=== PATIENT | male | born 1965 | race Caucasian/White ===

== ENCOUNTER 2025-08-17 03:39 | Observation (INO) | payer MEDICAID, SELFPAY ==
[2025-08-17] VITALS (22 sets, daily range): BP systolic 113–163; BP diastolic 74–113; PULSE 66–94; RESP 13–25; TEMP 36.4–37.1; O2SAT 89–98; BMI 25.4; BMI 24.4
--- NOTE | 2025-08-17 04:00 | ED.VIS.CHEST ---
HPI History of Present Illness Chief Complaint: Chest Pain Narrative Narrative: Chief complaint and HPI: 59-year-old male with past medical history of CAD with history of PCI, HTN, anxiety presents for evaluation of chest pain. Patient states that he was at work this evening when he began having left-sided chest tightness. Chest pain was with exertion. States it was similar to his previous [place] in 2014 but not as severe. States he was given full dose aspirin and nitro via EMS and pain resolved. He states he has a chronic cough secondary to COPD. He has a follow-up appointment with his PCP at the end of the month. Current tobacco user. He denies any fever, chills, shortness of breath, abdominal pain, nausea, vomiting. Review of systems: See HPI Medications: As listed on the chart Allergies: As listed on the chart PFSH: Per chart Vital signs: As listed on the chart. Reviewed. Physical exam: Gen: A&O x3, NAD Head: Normocephalic, atraumatic Eyes: No sclera icterus, conjunctiva clear ENT: Moist mucous membranes Neck: Trachea midline CV: RRR, no murmurs, no peripheral edema Resp: Expiratory wheezing bilaterally Musc: Full ROM, no deformity Skin: Warm, dry Neuro: Alert, oriented, grossly intact, sensation intact Psych: Cooperative, appropriate mood and affect [facility] Medical History (Updated 08/17/25 @ 03:44 by Yenny Bledsoe) Fracture, facial bones Home Medications ?Medication ?Instructions ?Recorded ?Last Taken ?Type albuterol sulfate 90 mcg/actuation inhalation 08/17/25 Unknown History aerosol inhaler allopurinol 300 mg tablet 300 mg PO DAILY 08/17/25 Unknown History aspirin 81 mg tablet 81 mg PO DAILY 08/17/25 Unknown History atorvastatin 40 mg tablet 40 mg PO DAILY 08/17/25 Unknown History cholecalciferol (vitamin D3) 50 50 mcg PO DAILY 08/17/25 Unknown History mcg (2,000 unit) capsule lisinopril 10 mg tablet 10 mg PO DAILY 08/17/25 Unknown History metoprolol succinate 25 mg 25 mg PO DAILY 08/17/25 Unknown History tablet,extended release 24 hr omeprazole 20 mg capsule,delayed 20 mg PO DAILY 08/17/25 Unknown History release sertraline 100 mg tablet 100 mg PO QHS 08/17/25 Unknown History Allergy/AdvReac Type Severity Reaction Status Date / Time codeine Allergy Hives Verified 08/17/25 03:42 sulfamethoxazole (From Allergy Hives Verified 08/17/25 03:42 Bactrim) trimethoprim (From Bactrim) Allergy Hives Verified 08/17/25 03:42 Surgical History (Updated 08/17/25 @ 03:44 by Yenny Bledsoe) H/O craniotomy Hx of appendectomy H/O heart artery stent Social History Smoking Status: Current every day smoker tobacco type: cigarettes EXAM Physical Exam Const Vital Signs: 08/17/25 03:40 08/17/25 03:40 08/17/25 04:04 Temperature 98.2 F Temperature Source Oral Pulse Rate 94 72 Respiratory Rate 25 H 13 Respiratory Effort Normal Non-Labored Respiratory Pattern Normal Blood Pressure 156/107 H Blood Pressure Mean 123 Pulse Ox 96 Oxygen Delivery Method Room Air 08/17/25 04:40 08/17/25 05:00 08/17/25 06:00 Temperature Temperature Source Pulse Rate 91 91 82 Respiratory Rate 18 19 H 22 H Respiratory Effort Respiratory Pattern Blood Pressure 140/108 H 151/102 H Blood Pressure Mean 118 118 Pulse Ox 95 95 93 Oxygen Delivery Method Room Air Room Air Room Air MDM MDM MDM Narrative Medical decision making narrative: 59-year-old male with past medical history of CAD with history of PCI, HTN, anxiety presents for evaluation of chest pain. Patient states that he was at work this evening when he began having left-sided chest tightness. Chest pain was with exertion. States it was similar to his previous [place] in 2013 but not as severe. States he was given full dose aspirin and nitro via EMS and pain resolved. He states he has a chronic cough secondary to COPD. Differential diagnosis includes but is not limited to ACS, arrhythmia, COPD, electrolyte abnormality. Patient already received aspirin and nitro. DuoNeb and albuterol ordered for wheezing. Cardiac workup ordered. EKG reviewed see below. CBC without leukocytosis or anemia. Platelets unremarkable. Coagulation panel unremarkable. BMP unremarkable. BNP unremarkable. Chest x-ray was personally reviewed and interpreted by nm, ED physician without pneumonia, effusion, cardiomegaly, pneumothorax. Per radiology mild bilateral peribronchial interstitial thickening, possible bronchitis. This is consistent with a chronic cough. Likely chronic bronchitis from COPD. Troponin unremarkable x 2. On reevaluation patient's chest pain is still resolved however patient has a moderate heart score of a 5 and given risk factors and description, recommend inpatient for stress test. Patient confirmed understanding of the plan. I spoke to his over the phone about results as well as the plan. She confirmed understanding. Dr. López accepted admission for observation for stress test. EKG: Interpreted by me/EM physician: EKG shows normal sinus rhythm without any acute ischemic changes. Heart rate 92. Impression: 1. Chest pain, ACS rule out Lab Data Labs: Laboratory Results - last 24 hr 08/17/25 08/17/25 03:27 05:29 WBC 10.2 RBC 4.54 L Hgb 15.6 Hct 44.2 MCV 97.4 H MCH 34.4 H MCHC 35.3 RDW Std Deviation 41.7 RDW Coeff of Praveen 11.7 Plt Count 157 MPV 10.2 Immature Gran % (Auto) 0.500 Neut % (Auto) 70.3 H Lymph % (Auto) 14.8 L [place] % (Auto) 11.6 H Eos % (Auto) 2.2 Baso % (Auto) 0.6 Absolute Neuts (auto) 7.1 Absolute Lymphs (auto) 1.50 Nucleated RBC % 0 PT 13.4 INR 1.0 APTT 26.5 Sodium 135 Potassium 4.3 Chloride 96 L Carbon Dioxide 25.7 Anion Gap 14 BUN 10 Creatinine 0.63 L Estim Creat Clear Calc 120.95 Est GFR (MDRD) Non-Af 111 BUN/Creatinine Ratio 15.4 Glucose 105 H Calcium 9.6 Troponin T High Sens < 6 Troponin T Hi Sens 2 Hr < 6 NT pro BNP II 148 Radiography Diagnostic Testing: Clinical Impression(s) from Imaging Studies Chest X-Ray 08/17/25 04:18 IMPRESSION: Mild bilateral peribronchial interstitial thickening, possibly bronchitis. [facility] Dis[facility] Triage Chief Complaint: Chest Pain ED Provider: Zach Smyth Dx/Rx/DC Orders Prescriptions: No Action aspirin 81 mg tablet 81 mg PO DAILY sertraline 100 mg tablet 100 mg PO QHS metoprolol succinate 25 mg tablet extended release 24 hr 25 mg PO DAILY lisinopril 10 mg tablet 10 mg PO DAILY atorvastatin 40 mg tablet 40 mg PO DAILY omeprazole 20 mg capsule,delayed release(DR/EC) 20 mg PO DAILY allopurinol 300 mg tablet 300 mg PO DAILY albuterol sulfate 90 mcg/actuation HFA aerosol inhaler inhalation cholecalciferol (vitamin D3) 50 mcg (2,000 unit) capsule 50 mcg PO DAILY Primary Care Provider: ZIA VALVERDE Referrals: [facility] Doctor,Out of [Non-Staff, Medical] Print Language: Bangladeshi
[2025-08-17] MEDS: Albuterol 2.5 MG/3 ML VIAL.NEB. INHALATION (04:03)
[2025-08-17 04:07] LABS: Hematocrit 44.2 % (40-54); Hemoglobin 15.6 g/dL (13.0-16.5); Immature Granulocytes Count 0.050 X10^3/uL (0.0-0.0); Mean Corp Hgb Conc 35.3 g/dL (32-36); Mean Corpuscular Volume 97.4 fL (80-94); Mean Platelet Vol. 10.2 fl (6.2-12.0); NRBC Flagged by Analyzer 0 % (0-5); Platelet Count 157 K/mm3 (150-450); RBC Distribution Width CV 11.7 % (11.6-14.6); RBC Distribution Width SD 41.7 fl (35.1-43.9); Red Blood Count 4.54 M/mm3 (4.6-6.2); White Blood Count 10.2 K/mm3 (4.4-11.0)
--- NOTE | 2025-08-17 04:09 | PCA ---
NO OLD EKG
--- NOTE | 2025-08-17 04:18 | RAD_ITS ---
PROCEDURE: CHEST PA AND LATERAL 08/17/2025 REASON FOR EXAM: CHEST PAIN TECHNIQUE: Procedure Code: RADCXR Modality: DX Procedure: CHEST PA AND LATERAL COMPARISON: None. FINDINGS: Mild bilateral peribronchial interstitial thickening, possibly bronchitis. There is no demonstrated pleural abnormality. Normal heart and pericardium. Normal mediastinum and alberto. Normal visualized pulmonary arteries. Normal visualized aortic arch and descending thoracic aorta. Normal visualized thoracic spine. Normal visualized ribs, clavicles, and shoulders. There is no demonstrated abnormality of the visualized soft tissue structures of the upper abdomen. RAD/Chest PA and Lateral IMPRESSION: Mild bilateral peribronchial interstitial thickening, possibly bronchitis. Reading [facility]
[2025-08-17 04:22] LABS: Prothrombin Time (Protime)PT. 13.4 SECONDS (11.7-14.9)
[2025-08-17 04:23] LABS: Partial Thromboplast Time 26.5 Seconds (24.1-36.2)
[2025-08-17 05:14] LABS: Troponin T High Sensitivity < 6 ng/L (<=22)
[2025-08-17 05:18] LABS: Anion Gap 14 (5-15); BUN 10 mg/dL (4-19); BUN/Creat Ratio 15.4 RATIO (10-20); Calcium,Total 9.6 mg/dL (7.6-11.0); Carbon Dioxide 25.7 mmol/L (21.0-32.0); Chloride 96 mmol/L (98-108); Estimated Creatinine Clearance 120.95 ml/min (50-250); Glucose 105 mg/dL (70-99); Potassium 4.3 mmol/L (3.3-5.1); Pro- Brain NATRIURETIC PEPTIDE 148 pg/mL (<=900)
[2025-08-17 06:04] LABS: Troponin T High Sens 2 HR < 6 ng/L (<=22)
--- NOTE | 2025-08-17 07:09 | PCM.HP.STD ---
HPI - General General Date of Admission: 08/17/25 Date of Service: 08/17/25 HPI Narrative BRITTNEY CALLEJAS, is a 59 M who presented to the emergency department at [facility] on the a.m. of 08/17/2025 with chief complaint of chest pain. He does have a history of coronary artery disease with PCI in 2014 has not followed with his primary medical care administrator much since that point in time. Patient works third shift and he stated he was at work and he began having left-sided chest tightness most notably with exertion. He indicated on presentation was similar to the symptoms that he experienced with his previous [place] however less severe. He was given a full dose aspirin and nitro in the squad prior to arrival which resolved his pain. Patient does indicate he has a chronic cough due to his COPD at baseline and still uses tobacco but this is his baseline. Vital signs on presentation showed temperature 98.2, heart rate 94, respiratory 25, blood pressure was 156/107 with a repeat of 140/108 and pulse ox was 96% on room air. CBC was unremarkable. Chemistry panel was unremarkable. Initial troponin is 6 with a delta of 6. proBNP was 148. Chest x-ray showed bilateral peribronchial thickening consistent with bronchitis. EKG showed no ST-T wave changes consistent with acute ischemia. Patient will be placed in the hospital as observation status for stress test. [facility] Medical History (Updated 08/17/25 @ 17:[address] Shanae López, ) Essential hypertension COPD (chronic obstructive pulmonary disease) Nicotine dependence Dyslipidemia Coronary artery disease Fracture, facial bones Home Medications ?Medication ?Instructions ?Recorded ?Last Taken ?Type albuterol sulfate 90 mcg/actuation 2 inh inhalation BID breathing 08/17/25 Unknown History aerosol inhaler allopurinol 300 mg tablet 300 mg PO DAILY 08/17/25 Unknown History aspirin 81 mg tablet 81 mg PO DAILY 08/17/25 Unknown History atorvastatin 40 mg tablet 40 mg PO DAILY 08/17/25 Unknown History cholecalciferol (vitamin D3) 50 50 mcg PO DAILY 08/17/25 Unknown History mcg (2,000 unit) capsule lisinopril 10 mg tablet 10 mg PO DAILY 08/17/25 Unknown History metoprolol succinate 25 mg 25 mg PO DAILY 08/17/25 Unknown History tablet,extended release 24 hr omeprazole 20 mg capsule,delayed 20 mg PO DAILY 08/17/25 Unknown History release sertraline 100 mg tablet 100 mg PO QHS 08/17/25 Unknown History Allergy/AdvReac Type Severity Reaction Status Date / Time codeine Allergy Hives Verified 08/17/25 03:42 sulfamethoxazole (From Allergy Hives Verified 08/17/25 03:42 Bactrim) trimethoprim (From Bactrim) Allergy Hives Verified 08/17/25 03:42 Family History (Updated 08/17/25 @ 17:[address] Shanae López DO) Other COPD (chronic obstructive pulmonary disease) Heart disease Hypertension Surgical History H/O craniotomy Hx of appendectomy H/O heart artery stent Social History (Updated 08/17/25 @ 17:[address] Shanae López DO) household members: spouse housing: apartment current occupational status: employed Smoking Status: Current every day smoker tobacco type: cigarettes alcohol intake: current alcohol intake frequency: a few times a month substance use type: does not use ROS Constitutional Constitutional: Denies anorexia, change in weight, chills, fatigue, fever(s), malaise, night sweats, weakness or other Eyes Eyes: Denies blurry vision, change in eye color, change in vision, discharge from eye(s), double vision, erythema, eye pain, loss of vision or other ENT HEENT: Denies abnormal hearing, dysphagia, ear pain, epistaxis, headache(s), hearing loss, nasal congestion, nasal discharge, post nasal drip, sinus pressure, sore throat or other Cardiovascular Cardiovascular: Reports chest pain and dyspnea on exertion; Denies claudication, edema, lightheadedness, orthopnea, palpitations, paroxysmal nocturnal dyspnea, rapid heart rate, syncope or other Respiratory/Chest Respiratory/Chest: Reports cough, dyspnea, shortness of breath with exertion and wheezing; Denies excessive phlegm production, hemoptysis, productive cough, shortness of breath at rest or other Gastrointestinal Gastrointestinal: Denies abdominal pain, coffee ground emesis, constipation, diarrhea, dyspepsia, hematemesis, hematochezia, loose stools, melena, nausea, vomiting or other Genitourinary Genitourinary: Denies burning urination, difficulty urinating, dysuria, hematuria, nocturia, urinary frequency, urinary hesitancy, urinary incontinence, urinary urgency or other Musculoskeletal Musculoskeletal: Denies arthralgias, back pain, joint pain, joint stiffness, joint swelling, myalgias, neck pain or other Neurologic Neurologic: Denies abnormal gait, abnormal speech, confusion, disequilibrium, dizziness, focal weakness, headache(s), numbness, paresthesias, seizure-like activity, seizures, syncope, tingling, tremor(s) or other Psychiatric Psychiatric: Reports depression; Denies anxiety, homicidal ideation, suicidal ideation or other Endocrine Endocrinology: Denies change in body appearance, cold intolerance, excessive sweating, heat intolerance, polydipsia, polyuria or other Hematologic/Lymphatic Hematologic/Lymphatic: Denies anemia, easy bleeding, easy bruising, lymphadenopathy or other Allergic/Immunologic Allergic/Immunologic: Denies rhinitis, hives, eczemia, asthma or other Vital Signs Vital Signs Vital Signs: 08/17/25 03:40 08/17/25 03:40 08/17/25 04:04 Temperature 98.2 F Temperature Source Oral Pulse Rate 94 72 Respiratory Rate 25 H 13 Respiratory Effort Normal Non-Labored Respiratory Pattern Normal Blood Pressure 156/107 H Blood Pressure Mean 123 Pulse Ox 96 Oxygen Delivery Method Room Air 08/17/25 04:40 08/17/25 05:00 08/17/25 06:00 Temperature Temperature Source Pulse Rate 91 91 82 Respiratory Rate 18 19 H 22 H Respiratory Effort Respiratory Pattern Blood Pressure 140/108 H 151/102 H Blood Pressure Mean 118 118 Pulse Ox 95 95 93 Oxygen Delivery Method Room Air Room Air Room Air 08/17/25 06:17 08/17/25 07:00 Temperature 98.1 F Temperature Source Pulse Rate 89 86 Respiratory Rate 20 H 20 H Respiratory Effort Respiratory Pattern Blood Pressure 163/99 H 152/100 H Blood Pressure Mean 120 117 Pulse Ox 93 93 Oxygen Delivery Method Room Air Weight Weight: 73.8 kg Body Mass Index (BMI) 25.4 Physical Exam Const alert, oriented x3, no apparent distress, average body habitus and well nourished; Negative for healthy appearing Constitutional Narrative: Middle-age, white male, sitting up in bed, appears older than stated age, appears comfortable, nontoxic, cardiology at bedside General Appearance: cooperative HEENT normocephalic, head/scalp atraumatic, hearing grossly normal bilaterally and moist oral mucous membranes HEENT Narrative: Dentition is poor, Mallampati is 2, no thrush Eyes conjunctivae normal Eyes Narrative: No scleral icterus Neck no lymphadenopathy and supple Neck Narrative: Trachea midline Resp normal respiratory effort, no retractions, no use of accessory muscles and No clear to auscultation bilaterally Resp Narrative: Diffusely diminished with scattered inspiratory and expiratory wheezes Auscultation: wheezes; Negative for crackles or rhonchi Cardio regular rate, regular rhythm, S1 normal heart sound, S2 normal heart sound, no murmurs, no rub, no gallops and no clicks GI normal to inspection, nondistended, normoactive bowel sounds, soft to palpation and non-tender Extremity no clubbing, cyanosis or edema Extremity Narrative: 2+ radial pulses 1+ pedal pulses Neuro moves all extremities and no focal motor deficits Speech: speech normal Psych affect normal Psych Narrative: Very pleasant, interacts appropriately Results Lab / Micro Data 08/17/25 03:27 08/17/25 03:27 Labs: Laboratory Results - last 24 hr 08/17/25 03:27: WBC 10.2, RBC 4.54 L, Hgb 15.6, Hct 44.2, MCV 97.4 H, MCH 34.4 H, MCHC 35.3, RDW Std Deviation 41.7, RDW Coeff of Praveen 11.7, Plt Count 157, MPV 10.2, Immature Gran % (Auto) 0.500, Neut % (Auto) 70.3 H, Lymph % (Auto) 14.8 L, [place] % (Auto) 11.6 H, Eos % (Auto) 2.2, Baso % (Auto) 0.6, Absolute Neuts (auto) 7.1, Absolute Lymphs (auto) 1.50, Nucleated RBC % 0, PT 13.4, INR 1.0, APTT 26.5, Sodium 135, Potassium 4.3, Chloride 96 L, Carbon Dioxide 25.7, Anion Gap 14, BUN 10, Creatinine 0.63 L, Estim Creat Clear Calc 120.95, Est GFR (MDRD) Non-Af 111, BUN/Creatinine Ratio 15.4, Glucose 105 H, Calcium 9.6, Troponin T High Sens < 6, NT pro BNP II 148 08/17/25 05:29: Troponin T Hi Sens 2 Hr < 6 Imaging Radiology Impression Chest X-Ray 08/17/25 04:18 IMPRESSION: Mild bilateral peribronchial interstitial thickening, possibly bronchitis. Reading [facility] Assessment & Plan Assessment/Plan (1) Unstable angina: PLAN: Plan Unstable angina with history of coronary disease - Symptoms are similar to his previous - Troponin negative x 2 - EKG is unremarkable - Check stress test if negative will discharge if positive will consult cardiology - Check lipid panel - Continue home aspirin, atorvastatin, lisinopril, metoprolol CAD/essential hypertension/hyperlipidemia - Patient with previous stent in 2013 but has not followed up with cardiology since that point in time - Continue home aspirin - Continue home atorvastatin - Continue on lisinopril next-continue metoprolol GERD - Continue home PPI Vitamin D deficiency - Continue on cholecalciferol History of gout - Continue home allopurinol COPD - Continue home as needed albuterol Depression Continue home sertraline Tobacco abuse - Patient denies need for nicotine replacement therapy at this time - Patient is aware that he can have something if he needs - Recommend smoking cessation DVT prophylaxis - Continue enoxaparin CODE STATUS - Full code as verified Charges/Coding Visit Charges Inpatient E&M: 78479 Init Hosp L2
--- NOTE | 2025-08-17 11:08 | STRESSREP ---
Stress Test Report Date: 08/17/2025 Procedure: Pharmacologic stress nuclear imaging study Indications: Chest pain Consent: Per the patient Procedure: The patient underwent pharmacologic (Regadenoson 0.4mg ) evaluation with a peak heart rate of 100 beats per minute (61%predicted maximal heart rate) and a peak blood pressure of 164/98 mmHg. The baseline ECG demonstrated sinus rhythm. The peak pharmacologic ECG did not show any ischemic changes. There were no cardiac dysrhythmias pretest, during pharmacologic infusion, or recovery. There was no complaint of chest discomfort during pharmacologic infusion or recovery. The patient was injected with 12.0 millicuries of technetium 99m Cardiolite and subsequently rest SPECT Cardiolite nuclear imaging was obtained in the horizontal long, vertical long, and short axis views. The patient underwent pharmacologic (Regadenoson) evaluation. The patient was injected with 34.0 millicuries of technetium 99m Cardiolite and subsequently stress SPECT Cardiolite nuclear imaging was obtained in the horizontal long, vertical long, and short axis views. A gated Cardiolite study at peak stress was obtained. The examination was stopped secondary to completion of protocol. Rest and stress SPECT Cardiolite nuclear imaging status post realignment, normalization, and attenuation correction demonstrate mildly reduced perfusion of the mid and basal septum post pharmacological stress. There is end systolic thickening and brightening. The gated Cardiolite study demonstrates myocardial thickening and inward wall motion. The reported LVEF is 66%. Impression: 1. Pharmacologic (Regadenoson) evaluation 2. Peak pharmacologic ECG with no ischemic changes. 3. There were no cardiac dysrhythmias pretest, during pharmacologic infusion, or recovery. 5. Mild reversible ischemia of the septal wall. 6. The gated Cardiolite study reports an LVEF of 66%. This note was generated with [employer] software. It may contain incorrect words, spelling, and punctuation that were not noted in checking the note before signing.
--- NOTE | 2025-08-17 11:58 | PCM.CONS.C ---
Assessment & Plan Assessment/Plan (1) Unstable angina: PLAN: New onset angina pectoris. Abnormal Lexiscan stress Myoview. Options discussed with patient. Medical management versus coronary angiography with possible percutaneous revascularization discussed. Risks benefits explained. He understands these and wishes to proceed with coronary angiography. (2) Coronary artery disease: PLAN: See #1 above. Previous history of PR. Previous history of PCI in 2013. (3) Nicotine dependence: PLAN: Quit smoking. (4) Dyslipidemia: PLAN: Atorvastatin. (5) COPD (chronic obstructive pulmonary disease): PLAN: As per internal medicine. HPI Consult Data Date of Consult: 08/17/25 HPI Narrative Reason for Consultation: Chest pain HPI Narrative: 59-year-old gentleman with previous history of heart attack with PCI in [place] in 2013, COPD, dyslipidemia and nicotine dependence. He presented to the emergency room after developing chest pain while at work yesterday. According to him, he felt pressure across his anterior chest. No radiation to the arm neck or jaw. Positive associated shortness of breath. Positive diaphoresis. According to the patient, his discomfort felt the same when he had his PR but less intense. Symptoms were relieved when EMS gave him nitroglycerin sublingual. He has been asymptomatic since. He has had a Lexiscan stress Myoview done this morning. It was abnormal with septal ischemia. Per patient, he was asymptomatic prior to this episode of chest discomfort yesterday. He does have chronic shortness of breath with exertion on account of his COPD. That remains unchanged. Denies orthopnea or PND. [facility] Medical History (Updated 08/17/25 @ 12:[address] Brooks Morales MD) Fracture, facial bones Home Medications ?Medication ?Instructions ?Recorded ?Last Taken ?Type albuterol sulfate 90 mcg/actuation 2 inh inhalation BID breathing 08/17/25 Unknown History aerosol inhaler allopurinol 300 mg tablet 300 mg PO DAILY 08/17/25 Unknown History aspirin 81 mg tablet 81 mg PO DAILY 08/17/25 Unknown History atorvastatin 40 mg tablet 40 mg PO DAILY 08/17/25 Unknown History cholecalciferol (vitamin D3) 50 50 mcg PO DAILY 08/17/25 Unknown History mcg (2,000 unit) capsule lisinopril 10 mg tablet 10 mg PO DAILY 08/17/25 Unknown History metoprolol succinate 25 mg 25 mg PO DAILY 08/17/25 Unknown History tablet,extended release 24 hr omeprazole 20 mg capsule,delayed 20 mg PO DAILY 08/17/25 Unknown History release sertraline 100 mg tablet 100 mg PO QHS 08/17/25 Unknown History Allergy/AdvReac Type Severity Reaction Status Date / Time codeine Allergy Hives Verified 08/17/25 03:42 sulfamethoxazole (From Allergy Hives Verified 08/17/25 03:42 Bactrim) trimethoprim (From Bactrim) Allergy Hives Verified 08/17/25 03:42 Surgical History (Updated 08/17/25 @ 03:44 by Yenny Bledsoe) H/O craniotomy Hx of appendectomy H/O heart artery stent Social History Smoking Status: Current every day smoker tobacco type: cigarettes Physical Exam Narrative Comfortable. No apparent distress. Heart sounds 1 and 2 noted. Mild bilateral expiratory wheezing noted on examination of the chest. Alert oriented x 3. No ankle edema. Objective Data Vital Signs: Vital Signs Temp Pulse Resp BP Pulse Ox O2 Del Method 98.7 F 70 18 151/97 H 98 Room Air 08/17/25 08:15 08/17/25 08:15 08/17/25 08:15 08/17/25 08:15 08/17/25 08:42 08/17/25 08:42 Oxygen Delivery Method Room Air Weight: 156 lb 1.396 oz Body Mass Index (BMI) 24.4 Intake & Output: Intake and Output for Last 24 Hours 08/15/25 08/16/25 08/17/25 23:59 23:59 23:59 Intake Total 0 / 0 Balance 0 / 0 Lab / Micro Data 08/17/25 03:27 08/17/25 03:27 Labs: Laboratory Results - last 24 hr 08/17/25 03:27: WBC 10.2, RBC 4.54 L, Hgb 15.6, Hct 44.2, MCV 97.4 H, MCH 34.4 H, MCHC 35.3, RDW Std Deviation 41.7, RDW Coeff of Praveen 11.7, Plt Count 157, MPV 10.2, Immature Gran % (Auto) 0.500, Neut % (Auto) 70.3 H, Lymph % (Auto) 14.8 L, Cottle % (Auto) 11.6 H, Eos % (Auto) 2.2, Baso % (Auto) 0.6, Absolute Neuts (auto) 7.1, Absolute Lymphs (auto) 1.50, Nucleated RBC % 0, PT 13.4, INR 1.0, APTT 26.5, Sodium 135, Potassium 4.3, Chloride 96 L, Carbon Dioxide 25.7, Anion Gap 14, BUN 10, Creatinine 0.63 L, Estim Creat Clear Calc 120.95, Est GFR (MDRD) Non-Af 111, BUN/Creatinine Ratio 15.4, Glucose 105 H, Calcium 9.6, Troponin T High Sens < 6, NT pro BNP II 148 08/17/25 05:29: Troponin T Hi Sens 2 Hr < 6 Cardiology Labs/Tests 08/17/25 03:27: WBC 10.2, RBC 4.54 L, Hgb 15.6, Hct 44.2, MCV 97.4 H, MCH 34.4 H, MCHC 35.3, Plt Count 157, MPV 10.2, Immature Gran % (Auto) 0.500, Neut % (Auto) 70.3 H, Lymph % (Auto) 14.8 L, Cottle % (Auto) 11.6 H, Eos % (Auto) 2.2, Baso % (Auto) 0.6, Absolute Neuts (auto) 7.1, Nucleated RBC % 0, PT 13.4, INR 1.0, APTT 26.5, Sodium 135, Potassium 4.3, Chloride 96 L, Carbon Dioxide 25.7, Anion Gap 14, BUN 10, Creatinine 0.63 L, Est GFR (MDRD) Non-Af 111, BUN/Creatinine Ratio 15.4, Glucose 105 H, Calcium 9.6 Rhythm: EKG: ECHO: Stress Test: Cardiac Cath: PCI: CT Surgery: Holter monitor: EPS: PPM: CXR: Chest CT Scan: Radiography Diagnostic Testing: Radiology Impression Chest X-Ray 08/17/25 04:18 IMPRESSION: Mild bilateral peribronchial interstitial thickening, possibly bronchitis. Reading Location: [place] [id number] [place] Risk Score for UA/STEMI Assesmment (YES = 1) Risk Stratification Applicable: No
--- NOTE | 2025-08-17 13:16 | CL.D_ITS ---
Patient Name: BRITTNEY CALLEJAS Study Date: 08/17/2025 Performing: Brooks Morales MD Ht: 67 inches 170.18 cm : 1965 Wt: 156.09 lbs 70.8 kg Age: 59 Gender: male BSA: 1.82 PROCEDURE(S) PERFORMED DC01-([id number])LHC/COR/LV CLINICAL PROFILE AND INDICATIONS Indications: New Onset Angina <= 2 months Heart Failure: None Stress/Imaging Stress Test w/SPECT MPI: Yes Result: Positive Low RiskStress Test with SPECT MPI: Positive Low Risk Angina Classification Anginal Classification w/in 2 Weeks: CCS II CAD Presentations: Unstable angina. CONCLUSIONS Stent to Mid LCX patent 40-50% Prox LAD LVEF 65% RECOMMENDATIONS Medical therapy Risk factor modification DESCRIPTION OF PROCEDURE The patient arrived to the procedure lab. The risks and benefits of the procedure as well as a full description of our services here and current unavailability of surgical backup were fully explained to the patient and/or their significant other prior to the catheterization. The Timeout was completed, verifying the correct patient and procedure. The patient's procedural site was prepped and draped in the usual fashion. Local anesthetic was given subcutaneously to right radial region with Lidocaine 2%. Using a modified Seldinger technique, arterial access was obtained via the right radial artery, a 6Fr sheath was inserted. Left Coronary Artery selective angiography was performed in multiple views using a 5 Fr. 4.0 Clio catheter. Right Coronary Artery selective angiography was then performed in multiple views using a 5 Fr. 4.0 Clio catheter. Left Ventriculography was performed in CURIEL projection using a 5 Fr. Pigtail catheter. LV to AO pullback pressures were then recorded.The arterial sheath was pulled and a TR Band was applied for hemostasis 14cc air CORONARY ANGIOGRAPHY DOMINANCE: Left Dominant LEFT HEART ASSESSMENT Left Ventricular Ejection Fraction: by LV Gram 65 % LVEDP: 25 mmHg LEFT MAIN: Angiographically normal LEFT ANTERIOR DESCENDING ARTERY: LAD: Tubular Calcified 40% Proximal lesion in LAD RIGHT CORONARY ARTERY: Angiographically normal COMPLICATIONS No Complications PROCEDURE MEDICATIONS Fentanyl 50 mcg IV Versed 1 mg IV Oxygen: 2 L/min via nasal cannula Heparin given IA 08/17/2025 12:37:58 Verapamil 2.5mg, Ntg 200mcgs, 2000 units of Heparin given IA 08/17/2025 12:37:58 SUMMARY OF HEMODYNAMIC DATA Time AIR REST ECG 12:23:46 AO 138/96 (115) SA 12:42:59 LV 150/13, 26 12:58:13 LV 158/14, 25 12:58:21 LV 146/20, 28 13:03:07 LVp 156/21, 29 13:03:14 AOp 164/23 (76) 13:03:21 13:15:14 Signed By Brooks Morales MD On 08/17/2025 13:16:02 Brooks Morales MD
[2025-08-17 13:31] LABS: D-Dimer Quantitative (DVT/PE) 0.46 FEU/ug/m (0.27-0.49)
[2025-08-17] MEDS: 0.9% Normal Saline (1000mL) 1,000 ML 150 ML IV (13:31)
[2025-08-17] MEDS: Cholecalciferol (VIT D3) 25 MCG TABLET (1,000 UNITS) 50 MCG PO (13:35)
[2025-08-17] MEDS: Metoprolol(XL)Succ 25 MG Tablet PO (13:36)
--- NOTE | 2025-08-17 21:45 | NURSING ---
This RN took over care of this pt at this time.
[2025-08-17] MEDS: 0.9% Saline Lock 10 ML Syringe IV (22:56)
[2025-08-18 05:15] VITALS: BP 145/97; PULSE 69; RESP 18; TEMP 37; O2SAT 93
[2025-08-18 06:13] LABS: Hematocrit 42.9 % (40-54); Hemoglobin 15.2 g/dL (13.0-16.5); Immature Granulocytes Count 0.040 X10^3/uL (0.0-0.0); Mean Corp Hgb Conc 35.4 g/dL (32-36); Mean Corpuscular Volume 98.4 fL (80-94); Mean Platelet Vol. 9.5 fl (6.2-12.0); NRBC Flagged by Analyzer 0 % (0-5); Platelet Count 158 K/mm3 (150-450); RBC Distribution Width CV 11.8 % (11.6-14.6); RBC Distribution Width SD 42.7 fl (35.1-43.9); Red Blood Count 4.36 M/mm3 (4.6-6.2); White Blood Count 8.7 K/mm3 (4.4-11.0)
[2025-08-18 06:31] LABS: D-Dimer Quantitative (DVT/PE) 0.53 FEU/ug/m (0.27-0.49)
[2025-08-18 06:35] LABS: AST(SGOT) 34 U/L (<=37); Alanine Aminotransfer ALT/SGPT 39 U/L (<=46); Albumin, Serum 4.1 g/dL (3.5-5.0); Alkaline Phosphatase 84 U/L (40-129); Anion Gap 10 (5-15); BUN 8 mg/dL (4-19); BUN/Creat Ratio 10.9 RATIO (10-20); Calcium,Total 9.6 mg/dL (7.6-11.0); Carbon Dioxide 27.1 mmol/L (21.0-32.0); Chloride 98 mmol/L (98-108); Cholesterol 200 mg/dL (<=200); Estimated Creatinine Clearance 107.32 ml/min (50-250); Globulin 3.1 g/dL (2.2-4.2); Glucose 103 mg/dL (70-99); Low Density Lipoprotein Calc. 98 mg/dL; Magnesium 1.8 mg/dL (1.5-2.2); Potassium 4.3 mmol/L (3.3-5.1); Triglycerides 61 mg/dL; Very Low Density Lipoprotein 12 mg/dL (5-40); cholesterol:hdl ratio screen 2.23
[2025-08-18 08:16] VITALS: BP 139/97; PULSE 70; RESP 16; TEMP 36.6; O2SAT 93
[2025-08-18 08:49] VITALS: PULSE 70
[2025-08-18] MEDS: Metoprolol(XL)Succ 25 MG Tablet PO (08:49)
[2025-08-18] MEDS: Cholecalciferol (VIT D3) 25 MCG TABLET (1,000 UNITS) 50 MCG PO (08:49)
--- NOTE | 2025-08-18 10:59 | NURSING ---
This nurse went to room to answer call light and pt who been pleasant and easygoing was frustrated and agitated. He was getting dressed and wanted to be D/c right away. explained d/c process. gave Dr López update that pt wants to leave AMA. She noted she is trying to get appts made for d/c. Gave this update to pt who then expressed frustration that he needs to walk to [place] from [facility] after d/c to get to his car. This nurse had community educator call to arrange ride w/ hospital van who had opening at noon.
[2025-08-18 11:15] VITALS: BP 134/101; PULSE 88; TEMP 36.7; O2SAT 95
--- NOTE | 2025-08-18 11:18 | PCM.DC.SUM ---
Providers Date of Admission: 08/17/25 Date of Discharge: 08/18/25 Primary Care Physician: ZIA VALVERDE Reason For Visit: ANGINA Diagnosis Discharge Diagnosis (1) Unstable angina: Status: Acute Code(s): I20.0 - Unstable angina Medications at Discharge Home Medications albuterol sulfate 90 mcg/actuation aerosol inhaler 2 inh inhalation BID breathing 08/17/25 allopurinol 300 mg tablet 300 mg PO DAILY 08/17/25 aspirin 81 mg tablet 81 mg PO DAILY 08/17/25 cholecalciferol (vitamin D3) 50 mcg (2,000 unit) capsule 50 mcg PO DAILY 08/17/25 lisinopril 10 mg tablet 10 mg PO DAILY 08/17/25 metoprolol succinate 25 mg tablet,extended release 24 hr 25 mg PO DAILY 08/17/25 omeprazole 20 mg capsule,delayed release 20 mg PO DAILY 08/17/25 sertraline 100 mg tablet 100 mg PO QHS 08/17/25 amlodipine 5 mg tablet 5 mg PO DAILY #30 tabs 08/18/25 atorvastatin 80 mg tablet (Lipitor) 80 mg PO DAILY #30 tabs 08/18/25 Hospital Course Operations None Procedures Cardiac catheterization, EKG and Nuclear stress test Summary of Care Provided Minutes Spent on Discharge: 37 Hospital Course: BRITTNEY CALLEJAS, is a 59 M who presented to the emergency department at [facility] on the a.m. of 08/17/2025 with chief complaint of chest pain. 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 Patient works third shift and he stated he was at work and he began having left-sided chest tightness most notably with exertion. He indicated on presentation was similar to the symptoms that he experienced with his previous MN however less severe. He was given a full dose aspirin and nitro in the squad prior to arrival which resolved his pain. Patient does indicate he has a chronic cough due to his COPD at baseline and still uses tobacco but this is his baseline. Vital signs on presentation showed temperature 98.2, heart rate 94, respiratory 25, blood pressure was 156/107 with a repeat of 140/108 and pulse ox was 96% on room air. CBC was unremarkable. Chemistry panel was unremarkable. Initial troponin is 6 with a delta of 6. proBNP was 148. Chest x-ray showed bilateral peribronchial thickening consistent with bronchitis. EKG showed no ST-T wave changes consistent with acute ischemia. Given his concerning symptoms he was admitted to the hospital under observation status and a stress test was ordered. Stress test was performed on 08/17/2025 and was abnormal. It showed no cardiac dysrhythmias, mild reversible ischemia at the septal wall, estimated EF of 66% with peak pharmacological EKG showing no EKG changes. Given his septal wall reversible ischemia concerns cardiology was consulted and he was taken to [facility] on 07/19/2025 at which time he was found to have no obstructive lesions, patent stent to the mid left circumflex and 40 to 50% proximal LAD stenosis with an EF of 65%. Medical therapy was recommended to be continue and risk factor modification was pursued. Patient was already on a statin but his LDL was greater than 70 so we did increase his dose from 40 to 80 mg daily and a prescription for this was sent. He was also started on some low-dose amlodipine by cardiology at 5 mg daily. He is currently not following with cardiology so we did make an appointment for him to be seen here in town with cardiology and have asked him to follow-up with his primary care physician in the next 2 weeks. We also did discuss tobacco cessation and patient voiced understanding and stated he would try. Patient was able to be discharged home in stable condition on 08/18/2025. Discharge diagnoses: Chest pain-resolved Nonobstructive CAD Essential hypertension Hyperlipidemia GERD Vitamin D deficiency History of gout COPD Depression Tobacco abuse Physical Exam Const alert, oriented x3, no apparent distress, average body habitus, no limitations and well nourished; Negative for healthy appearing Constitutional Narrative: Middle-age, white male, sitting up in bed, appears older than stated age, appears comfortable, nontoxic General Appearance: cooperative, comfortable, well kempt and well developed Exam Limitations: no limitations HEENT normocephalic, head/scalp atraumatic, hearing grossly normal bilaterally and moist oral mucous membranes HEENT Narrative: Dentition is poor, Mallampati is 2, no thrush Eyes conjunctivae normal Eyes Narrative: No scleral icterus Neck no lymphadenopathy and supple Neck Narrative: Trachea midline Resp normal respiratory effort, no retractions, no use of accessory muscles and No clear to auscultation bilaterally Resp Narrative: Diffusely diminished with coarse breath sounds and scattered inspiratory and expiratory wheezes Auscultation: wheezes; Negative for crackles or rhonchi Cardio regular rate, regular rhythm, S1 normal heart sound, S2 normal heart sound, no murmurs, no rub, no gallops and no clicks GI normal to inspection, nondistended, normoactive bowel sounds, soft to palpation and non-tender Extremity no clubbing, cyanosis or edema Extremity Narrative: 2+ radial pulses 1+ pedal pulses Skin no jaundice, no petechiae and no mottling Skin Narrative: Area over right radial artery with a small amount of ecchymosis and minimal tenderness, no signs of significant edema Neuro moves all extremities and no focal motor deficits Speech: speech normal Psych affect normal Psych Narrative: Very pleasant, interacts appropriately Weight / BMI Weight Weight: 70.8 kg Body Mass Index (BMI) 24.4 ABG / Lab / Microbiology Data 08/18/25 05:44 08/18/25 05:44 Laboratory: Laboratory Results - last 24 hr 08/17/25 13:08: D-Dimer Quant (PE/DVT) 0.46 08/18/25 05:44: WBC 8.7, RBC 4.36 L, Hgb 15.2, Hct 42.9, MCV 98.4 H, MCH 34.9 H, MCHC 35.4, RDW Std Deviation 42.7, RDW Coeff of Praveen 11.8, Plt Count 158, MPV 9.5, Immature Gran % (Auto) 0.500, Neut % (Auto) 73.7 H, Lymph % (Auto) 11.5 L, [place] % (Auto) 10.3 H, Eos % (Auto) 3.3, Baso % (Auto) 0.7, Absolute Neuts (auto) 6.4, Absolute Lymphs (auto) 1.00, Nucleated RBC % 0, D-Dimer Quant (PE/DVT) 0.53 H*, Sodium 135, Potassium 4.3, Chloride 98, Carbon Dioxide 27.1, Anion Gap 10, BUN 8, Creatinine 0.71, Estim Creat Clear Calc 107.32, Est GFR (MDRD) Non-Af 107, BUN/Creatinine Ratio 10.9, Glucose 103 H, Calcium 9.6, Phosphorus 2.9, Magnesium 1.8, Total Bilirubin 1.64 H, AST 34, ALT 39, Alkaline Phosphatase 84, Total Protein 7.2, Albumin 4.1, Globulin 3.1, Albumin/Globulin Ratio 1.3, Triglycerides 61, Cholesterol 200, LDL Cholesterol, Calc 98, VLDL Cholesterol 12, HDL Cholesterol 90, Cholesterol/HDL Ratio 2.23 D/C Instructions Discharge Activity: Return to Normal Activity Return to work on: 08/20/25 DC O2, CPAP, BIPAP Needs Home O2 Discharge instructions: No DC home with Oxygen: No Meaningful Use Info Meaningful Use Meaningful Use Diagnoses (Choose all that apply): None applicable Discharge Plan Admission Admit Date/Time: 08/17/25 07:00 Primary Reason for Your Visit: Chest pain Attending Provider: Shanae López Primary Care Provider: ZIA VALVERDE Instructions Forms: Work Excuse, Work / School Excuse Additional Instructions / Restrictions: 1. Highly recommend discontinuation of tobacco use 2 your cholesterol was too high so we did increase your cholesterol medication from 40 to 80 mg. I recommend you follow-up with your primary care doctor and they can check your cholesterol in 3 months Discharge Orders/Prescriptions Prescriptions: New amlodipine 5 mg Tablet 5 mg PO DAILY Qty: 30 1RF atorvastatin [Lipitor] 80 mg tablet 80 mg PO DAILY Qty: 30 1RF Continued aspirin 81 mg tablet 81 mg PO DAILY sertraline 100 mg tablet 100 mg PO QHS metoprolol succinate 25 mg tablet extended release 24 hr 25 mg PO DAILY lisinopril 10 mg tablet 10 mg PO DAILY omeprazole 20 mg capsule,delayed release(DR/EC) 20 mg PO DAILY allopurinol 300 mg tablet 300 mg PO DAILY albuterol sulfate 90 mcg/actuation HFA aerosol inhaler 2 inh inhalation BID cholecalciferol (vitamin D3) 50 mcg (2,000 unit) capsule 50 mcg PO DAILY Discontinued atorvastatin 40 mg tablet 40 mg PO DAILY Referrals / Follow Up: ZIA VALVERDE [Other] - Within 2 Weeks Nilson Marcum MD [Med Staff - Active Staff, Cardiology] - 08/28/25 1:30 pm Referral Note: APPOINTMENT WITH TAMMIE Novak Doctor,Out of [Non-Staff, Medical] Disposition Disposition (needs filled in before D/C Order can be placed): Home, Self Care Charges/Coding Visit Charges Inpatient E&M: 96217 Disch Hosp >30min
--- NOTE | 2025-08-18 11:28 | CASEMGMT ---
Patient has order for discharge. RN CM in to discuss needs at discharge. Patient denies needs or help at discharge. Patient had no further questions or concerns.
[2025-08-18] MEDS: FLU VACCINE 2025-26(6MOS UP) 45 MCG/0.5 ML SYRINGE IM (11:29)
--- NOTE | 2025-08-18 11:48 | PHA.DC_ITS ---
Pharmacy [facility] has performed discharge medication counseling for this patient. The patient was counseled on the following discharge medications and changes in medications for homegoing review. The Reason for Use, instructions for use, and potential side effects were reviewed for all new medications. The patient's questions regarding all of their medications were answered. The patient was able to verbally demonstrate an understanding of their discharge medications. Medications at Discharge Home Medications albuterol sulfate 90 mcg/actuation aerosol inhaler 2 inh inhalation BID breathing 08/17/25 allopurinol 300 mg tablet 300 mg PO DAILY gout 08/17/25 aspirin 81 mg tablet 81 mg PO DAILY heart health 08/17/25 cholecalciferol (vitamin D3) 50 mcg (2,000 unit) capsule 50 mcg PO DAILY vitamin 08/17/25 lisinopril 10 mg tablet 10 mg PO DAILY blood pressure 08/17/25 metoprolol succinate 25 mg tablet,extended release 24 hr 25 mg PO DAILY blood pressure 08/17/25 omeprazole 20 mg capsule,delayed release 20 mg PO DAILY reflux 08/17/25 sertraline 100 mg tablet 100 mg PO QHS mental health 08/17/25 amlodipine 5 mg tablet 5 mg PO DAILY #30 tabs 08/18/25 atorvastatin 80 mg tablet (Lipitor) 80 mg PO DAILY #30 tabs 08/18/25
== END 2025-08-18 11:50 | disposition home or self-care (01) ==
LOC: ED 05:06 → PCU 07:42
PROVIDERS: Internal Medicine Cardiovascular Disease; Admitting Provider Internal Medicine; Emergency Provider Surgery; Visit Provider Internal Medicine
DX: I25.110 Atherosclerotic heart disease of native coronary artery with unstable angina pectoris (principal); J44.9 Chronic obstructive pulmonary disease, unspecified; Z79.82 Long term (current) use of aspirin; E78.5 Hyperlipidemia, unspecified; M10.9 Gout, unspecified; K21.9 Gastro-esophageal reflux disease without esophagitis; E55.9 Vitamin D deficiency, unspecified; F17.210 Nicotine dependence, cigarettes, uncomplicated; I10 Essential (primary) hypertension; I25.2 Old myocardial infarction; Z79.899 Other long term (current) drug therapy
CPT/HCPCS: C1769; 36415; 71046; 78452; 80048; 80053; 80061; 83735; 83880; 84100; 84484; 85025; 85379; 85610; 85730; 93005; 93017; 93458; 94640; 94668; 96372; 99152; 99153; 99221; 99252; 99285; A9500; C1894; Q9967; A4216; G0378; G0463; J2785